=== PATIENT | female | born 1985 | race Asian ===

== ENCOUNTER 2017-06-23 12:36 | Inpatient (IN) | payer OTHER ==
[2017-06-23] MEDS ORDERED: Sodium Chloride 0.9% 10 ML Syringe FLUSH PRN (13:11)
[2017-06-23] MEDS ORDERED: MVI, Adult with Vitamin K 10 ML, Folic Acid 1 MG, Thiamine 100 MG in Lactated Ringers 1... IV ONE ×4 (13:36)
[2017-06-23] MEDS ORDERED: Potassium Chloride 20 MEQ in Premix Bag 1 BAG IV SCH (14:00)
--- NOTE | 2017-06-23 14:08 | PCM.PN ---
- General Info Date of Service: 06/23/17 Admission Dx/Problem (Free Text): 32-year-old the female with her first at 10 week gestational age was admitted by Dr. Beaver for having refractory nausea and vomiting. 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 Patient started the nausea and vomiting 3-4 weeks ago. She vomits about 10 times a day. Last vomits was 50 minutes ago. Patient denies headache, change in vision, fever, chills, fever, chills, chest pain, shortness breath, cough, abdominal pain, diarrhea, nausea discharge, vaginal bleeding, lower extremity edema, any other symptoms or concerns. She admitted that she is having movement. Patient was started on PTU for the thyrotoxicosis. Yesterday her magnesium was 1.7 and potassium 2.9. she went to the emergency room and had Unknown amount of potassium and magnesium infusion. Her labs were rechecked today at the clinic and her magnesium is 1.5 and potassium 2.7 - Patient Data Weight - Most Recent: 73.936 kg Med Orders - Current: Current Medications Multivitamins/Minerals 10 ml/Folic Acid 1 mg/ Thiamine HCl 100 mg/ Lactated Ringer's 1,011.2 mls @ 999 mls/hr IV ONETIME ONE Stop: 06/23/17 14:36 Magnesium Sulfate 2 gm/ Premix 50 mls @ 25 mls/hr IV Q2H ZHANG Stop: 06/23/17 17:59 Potassium Chloride 10 meq/ (Premix) 100 mls @ 100 mls/hr IV Q1H ZHANG Stop: 06/23/17 21:59 Ondansetron HCl (Zofran) 4 mg IVPUSH Q4H PRN PRN Reason: Nausea/Vomiting Propylthiouracil (Propylthiouracil) 100 mg PO Q8HR ZHANG Sodium Chloride (Saline Flush) 10 ml FLUSH ASDIRECTED PRN PRN Reason: Keep Vein Open Discontinued Medications Potassium Chloride 20 meq/ (Premix) 100 mls @ 100 mls/hr IV Q1H ZHANG Stop: 06/23/17 15:59 - My Orders Last 24 Hours: My Active Orders 06/23/17 13:36 MVI, Adult with Vitamin K [Infuvite Adult] 10 ml Folic Acid 1 mg Thiamine [ Vitamin B-1] 100 mg Lactated Ringers [Ringers, Lactated] 1,000 ml IV ONETIME 06/23/17 14:00 Magnesium Sulfate/Water [Magnesium Sulfate 2 GM in Water 50 ML] 2 gm Premix Bag 1 bag IV Q2H Potassium Chloride [KCl 10 MEQ in Water 100 ML] 10 meq Premix Bag 1 bag IV Q1H 06/23/17 23:00 BASIC METABOLIC PANEL,BMP [CHEM] Routine
[2017-06-23] MEDS: Potassium Chloride 10 MEQ in Premix Bag 1 BAG IV SCH ×4 (14:19→22:47)
--- NOTE | 2017-06-23 14:21 | PCM.PN ---
- General Info Date of Service: 06/23/17 Admission Dx/Problem (Free Text): Hyperkalemia, hypomagnesemia, hyperemesis gravidarum, thyrotoxicosis Subjective Update: 32-year-old the female with her first at 10 week gestational age was admitted by Dr. Beaver for having refractory nausea and vomiting. 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 Patient started the nausea and vomiting 3-4 weeks ago. She vomits about 10 times a day. Last vomits was 50 minutes ago. Patient denies headache, change in vision, fever, chills, fever, chills, chest pain, shortness breath, cough, abdominal pain, diarrhea, nausea discharge, vaginal bleeding, lower extremity edema, any other symptoms or concerns. She admitted that she is having movement. Patient was started on PTU for the thyrotoxicosis. Yesterday her magnesium was 1.7 and potassium 2.9. she went to the emergency room and had Unknown amount of potassium and magnesium infusion. Her labs were rechecked today at the clinic and her magnesium is 1.5 and potassium 2.7. AST 87. ALP 151. - Patient Data Weight - Most Recent: 73.936 kg Med Orders - Current: Current Medications Multivitamins/Minerals 10 ml/Folic Acid 1 mg/ Thiamine HCl 100 mg/ Lactated Ringer's 1,011.2 mls @ 999 mls/hr IV ONETIME ONE Stop: 06/23/17 14:36 Magnesium Sulfate 2 gm/ Premix 50 mls @ 25 mls/hr IV Q2H ZHANG Stop: 06/23/17 17:59 Potassium Chloride 10 meq/ (Premix) 100 mls @ 100 mls/hr IV Q1H ZHANG Stop: 06/23/17 21:59 Ondansetron HCl (Zofran) 4 mg IVPUSH Q4H PRN PRN Reason: Nausea/Vomiting Propylthiouracil (Propylthiouracil) 100 mg PO Q8HR [facility] Sodium Chloride (Saline Flush) 10 ml FLUSH ASDIRECTED PRN PRN Reason: Keep Vein Open Discontinued Medications Potassium Chloride 20 meq/ (Premix) 100 mls @ 100 mls/hr IV Q1H [facility] Stop: 06/23/17 15:59 - Exam General: Alert, Oriented, Cooperative, No Acute Distress. No: Mild Distress, Moderate Distress, Severe Distress, Sedated, Lethargic, Obtunded HEENT: Pupils Equal, Pupils Reactive, EOMI, Mucous Membr. Moist/[place] Neck: Supple, Trachea Midline, No JVD Lungs: Clear to Auscultation, Normal Respiratory Effort Cardiovascular: Regular Rate, Regular Rhythm, No Murmurs. No: Bradycardia, Tachycardia, Murmurs, Gallops, Rubs GI/Abdominal Exam: Normal Bowel Sounds, Soft, Non-Tender, No Organomegaly, No Distention, No Abnormal Bruit (Female) Exam: Deferred Back Exam: Normal Inspection, Full Range of Motion. No: CVA Tenderness (L), CVA Tenderness (R) Extremities: Normal Inspection, Normal Range of Motion, Non-Tender, No Pedal Edema, Normal Capillary Refill Skin: Warm, Dry, Intact Neurological: No New Focal Deficit Psy/Mental Status: Alert, Normal Affect, Normal Mood - Problem List Review Problem List Initiated/Reviewed/Updated: Yes - My Orders Last 24 Hours: My Active Orders 06/23/17 13:36 MVI, Adult with Vitamin K [Infuvite Adult] 10 ml Folic Acid 1 mg Thiamine [ Vitamin B-1] 100 mg Lactated Ringers [Ringers, Lactated] 1,000 ml IV ONETIME 06/23/17 14:00 Magnesium Sulfate/Water [Magnesium Sulfate 2 GM in Water 50 ML] 2 gm Premix Bag 1 bag IV Q2H Potassium Chloride [KCl 10 MEQ in Water 100 ML] 10 meq Premix Bag 1 bag IV Q1H 06/23/17 23:00 COMPREHENSIVE METABOLIC PN,CMP [CHEM] Routine MAGNESIUM [CHEM] Routine - Plan Plan:: Impression 32-year-old the female with her first at 10 week gestational age was admitted by Dr. Beaver for having refractory nausea and vomiting. Magnesium is 1.5. Potassium 2.7. AST 151. AST 87. TSH on 06/19/17 was less than 0.01. I was consulted by Dr. Beaver to manage her magnesium and potassium. Plan #Hypokalemia -Potassium chloride 10 mEq in 100 mL of water, trying at 1 mL per hour. We'll give 8 doses. Unfortunately our staff do not run 20 mEq of potassium chloride IV in 1 hour. Patient does not tolerating oral pills but will try 20 mEq orally after giving 1 dose of Zofran -We'll check potassium after 9 hours -EKG shows no acute findings. It is sinus rhythm with no U waves or arrhythmia. -Monitor on telemetry #Hypomagnesemia We'll give magnesium sulfate 4 g IV infusion and 4 hours #Hyperemesis gravidarum -We'll give 1 L of banana bag as a bolus -We'll run IV fluid of LR at 150 mL per hour -Rest of management is per OB team #Thyrotoxicosis without thyroid storm, -Management is per OB team #Elevated liver enzymes -Could be from dehydration -Recheck liver enzymes SCDs for DVT prophylaxis I'll sign out to Dr. Dick 7 PM
[2017-06-23] MEDS: Magnesium Sulfate/Water 2 GM in Premix Bag 1 BAG IV SCH ×2 (14:29→17:12)
[2017-06-23] MEDS ORDERED: Lactated Ringers 1,000 ML IV SCH (14:30)
[2017-06-23] MEDS ORDERED: Ondansetron 4 MG/2 ML SDV IV ONE (14:31)
[2017-06-23] MEDS: Ondansetron 4 MG/2 ML SDV IVPUSH PRN ×2 (14:41→22:13)
[2017-06-23] MEDS ORDERED: Potassium Chloride 10 MEQ Tab.ER PO ONE (14:45)
[2017-06-23 15:49] LABS: ANION GAP 14.1; CHLORIDE,CL 102 mmol/L (101-111); SODIUM,NA 133 mmol/L (135-145)
[2017-06-23] MEDS ORDERED: Acetaminophen/oxyCODONE 325-5 MG Tab PO ONE (22:28)
[2017-06-24] MEDS ORDERED: Acetaminophen 325 MG Tab PO PRN (05:12)
[2017-06-24] MEDS ORDERED: oxyCODONE 5 MG Tab PO ONE (05:13)
[2017-06-24] MEDS ORDERED: Acetaminophen/oxyCODONE 325-5 MG Tab PO ONE (05:19)
[2017-06-24 05:21] LABS: ANION GAP 10.7; CHLORIDE,CL 104 mmol/L (101-111); SODIUM,NA 134 mmol/L (135-145)
[2017-06-24] MEDS: Potassium Chloride 10 MEQ in Premix Bag 1 BAG IV SCH ×2 (05:53→05:54)
[2017-06-24] MEDS ORDERED: Prenatal Multivitamin with Calcium/Folic Acid/Iron Tab PO SCH (08:00)
[2017-06-24] MEDS ORDERED: Potassium Chloride 10 MEQ Tab.ER PO ONE (09:07)
[2017-06-24] MEDS ORDERED: Ondansetron 4 MG Tab.DIS PO ONE (09:08)
--- NOTE | 2017-06-26 09:17 | DISCH ---
DATE: 06/24/2017 LOCATION: [facility] SUBJECTIVE: The patient is a 32-year-old G1 at 10 weeks and 1 day, who was admitted last night by Dr. Anabel Beaver for hyperemesis gravidarum as well as electrolyte abnormality. The patient has been on Zofran, and Nephrology did give her 20 mEq of IV potassium and 3 mg IV magnesium. This morning, she had lost her IV, but she is tolerating p.o., she had an entire breakfast, which is very reassuring. The patient did need Percocet overnight for her headache and that has also resolved now and she had been eating. OBJECTIVE: Vital Signs: The patient is afebrile. Blood pressure 115/52, respiratory rate 20, and O2 saturation 99%. Her heart rate is 72. LAB AND DIAGNOSTIC DATA: Her potassium has now gone up from 3.1 to 3.7. Her magnesium has gone up from 1.6 to 2.0. A bedside ultrasound was performed, and it did show a single live intrauterine with good growth. ASSESSMENT AND PLAN: This is a 32-year-old 1 at 10 weeks and 1 day with hyperemesis gravidarum. The patient is doing better now on Zofran. She had already taken 1 p.o. Zofran today and was able to tolerate her p.o. potassium, and as stated before, she has passed her PO challenge; therefore, we will discharge her on the Zofran. I also gave her a prescription for K-Dur 10 mEq take them once a day for the next 10 days. I did speak with our hospitalist/wool carder, who recommended that we perform another chem-10 on Monday, to make sure her potassium and magnesium are still normal. She will follow up with Dr. Beaver in the clinic this coming Monday, but she will call us if she is unable to tolerate p.o. or if is having any problems. Again, I strongly stressed to this patient that she needs to continue her thyroid medications also since she has hyperthyroidism. [facility] /[id number] ENRRIQUE
--- NOTE | 2017-07-05 12:28 | EKG ---
06/23/2017- JJ JOSHUA - FINDINGS: EKG per my reading shows sinus tachycardia at the rate of 90. MOD /[id number]
== END 2017-06-24 11:49 | disposition home or self-care (01) | DRG 781 ==
LOC: UNDOADMIN 12:52 → DL.MS 12:52
PROVIDERS: ADMIT Family Medicine; ATTEND Family Medicine
DX: O21.0 Mild hyperemesis gravidarum (principal); O26.891 Other specified pregnancy related conditions, first trimester; Z3A.10 10 weeks gestation of pregnancy; O99.281 Endocrine, nutritional and metabolic diseases complicating pregnancy, first trimester; E87.6 Hypokalemia; E83.42 Hypomagnesemia; Z79.899 Other long term (current) drug therapy
CPT/HCPCS: 36415; 80053; 83735; 84132; A9270-GY; J2405; J3411; J3475; J3480; J3490; J7120

== ENCOUNTER 2017-12-24 06:39 | Inpatient (IN) | payer OTHER ==
[2017-12-24] MEDS: Lactated Ringers 1,000 ML IV SCH ×3 (07:30→18:20)
[2017-12-24] MEDS ORDERED: Sodium Chloride 0.9% 10 ML Syringe FLUSH PRN (08:38)
[2017-12-24] MEDS ORDERED: Lactated Ringers 500 ML IV ONE (08:38)
[2017-12-24] MEDS ORDERED: Lidocaine 1% 30 ML SDV INJECT PRN (08:38)
[2017-12-24] MEDS ORDERED: Tranexamic Acid 1,000 MG in Sodium Chloride 0.9% 100 ML IV PRN (08:38)
[2017-12-24] MEDS ORDERED: Carboprost Tromethamine 250 MCG/1 ML Amp IM PRN (08:38)
[2017-12-24] MEDS ORDERED: Acetaminophen 325 MG Tab PO PRN (08:38)
[2017-12-24] MEDS ORDERED: Ondansetron 4 MG/2 ML SDV IV PRN (08:38)
[2017-12-24] MEDS ORDERED: Misoprostol 400 MCG (4 X 100 MCG TAB) RECTAL PRN (08:38)
[2017-12-24] MEDS ORDERED: Methylergonovine 0.2 MG/1 ML Amp IM PRN (08:38)
[2017-12-24] MEDS ORDERED: Lactated Ringers 1,000 ML IV SCH (08:45)
[2017-12-24] MEDS: Oxytocin/Normal Saline 30 UNIT/500 ML BAG IV SCH (08:47)
--- NOTE | 2017-12-24 09:26 | HP ---
CHIEF COMPLAINT: Leakage of fluid. HISTORY OF PRESENT ILLNESS: A 32-year-old 1, para 0, currently at 36 and 2/7 weeks' intrauterine based on 10-week ultrasound, presents to the hospital reporting spontaneous rupture of membranes around 2:00 this morning with continued leakage of clear fluid. Also felt that the baby movement had been less since that time. She has had some contractions, but nothing that is really getting more painful or regular. Reports no symptoms of preeclampsia. No headaches, blurry vision, chest pain, shortness of breath, right upper quadrant pain, nausea or vomiting. She does have some significant edema that has been present for several weeks now. Otherwise, denies acute concerns at this time. HISTORY: She has had excellent care with some significant hyperemesis gravidarum in the first trimester, treated several times with IV fluids as an outpatient and even admitted to the hospital for potassium replacement and treatment with IV and IM medications for her nausea, and she initially experienced some weight loss, but has made up for that. Her thyroid has been hyperactive as well and she has been managed on PTU and Tapazole for that and never made it to see Endocrinology and is anticipating doing that sometime after delivery due to her history of advanced maternal age and infertility. She was given progesterone during the first trimester. MEDICATIONS: Total list of medications this , 1. Zofran. 2. Iron. 3. PTU. 4. Tapazole. 5. Reglan. 6. Phenergan. 7. Potassium chloride. 8. Magnesium. 9. Progesterone. 10.Tylenol. 11.Oxycodone. 12.TobraDex eye drops. 13.Thiamine. LABORATORY DATA: AB positive. Rubella immune. Syphilis serology nonreactive. Urine culture, no growth. Hepatitis B negative. HIV negative. Gonorrhea and Chlamydia negative. Hepatitis C, nonreactive. Wet prep was negative. Glucose tolerance test normal at 98. Last hemoglobin of 10.4 and platelets of 219. Group B Strep culture was negative. Varicella susceptible. PAST MEDICAL HISTORY: 1. Ear piercings. No transfusions, tattoos, or IV drug use. 2. History of infertility with 10 years of treatment at [place] and [facility]. 3. History of chickenpox vaccination. 4. Puberty at age 11. SURGICAL HISTORY: She had some fertility surgeries, otherwise none. FAMILY HISTORY: Mother with hypertension. Father has no known diseases. Sister has a history of stillbirth or miscarriage. Brother has no known diseases. Maternal grandmother with hypertension and stroke. Maternal grandfather had no known diseases. Paternal grandmother had liver disease. Paternal grandfather had no known diseases. The family history is negative for cystic fibrosis, seizures, bleeding problems, clotting disorders, defects and multiples in labor. SOCIAL HISTORY: The patient is , is [place]. She is a nonsmoker and had no alcohol exposure this . 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 They live in an apartment here in town and did not have any pets. They are originally from [place] and [place] [facility]. Her mother will be coming to visit to help them after the baby is born. CURRENT MEDICATIONS: 1. Iron 325 mg 2 to 3 times daily. 2. Magnesium oxide 250 mg twice daily. 3. Tapazole 10 mg twice daily. 4. Zofran 4 mg every 8 hours as needed. 5. vitamin 1 daily. ALLERGIES: No known drug allergies. REVIEW OF SYSTEMS: Pertinent positives and negatives under the history of present illness. No fever or chills. No current nausea or vomiting. No diarrhea or constipation. No dysuria. No new reported skin rashes, aches or pains. OBJECTIVE: Vital Signs: Initial blood pressure 144/88, pulse of 94, temperature is 96.9. HEENT: Grossly unremarkable. Neck: Supple without adenopathy. Thyroid is not enlarged. Heart: Regular without murmur. Lungs: Clear to auscultation bilaterally. Abdomen: Gravid, soft, nontender. Fundal height appropriate for dates and quick look bedside ultrasound confirms baby to be vertex in OP position with an anterior placenta. Extremities: 2+ pitting edema bilaterally. No erythema or tenderness. Neurological: No focal deficits. Cervix: per the nurse's exam is currently only a dimple and very high position. The patient is fairly uncomfortable with pelvic exams and makes exam difficult. monitoring strip shows baseline heart rate of 140 beats per minute with moderate [id number] variability, but overall nonreactive without significant accelerations. Contractions initially every 3 to 7 minutes and spaced out every 8 minutes when I came in to see her. ASSESSMENT: 1. A 36 and 2/7 weeks' intrauterine based on last menstrual period and 10-week ultrasound. 2. Premature rupture of membranes. 3. Anemia of . 4. Elevated blood pressures currently. 5. Varicella susceptible. 6. Hyperthyroidism. 7. Hyperemesis gravidarum. 8. Advanced maternal age. 9. History of infertility. PLAN: The patient has been admitted to the hospital. She has been started on some Pitocin for cervical ripening and hopefully induction of labor. Hopefully will be able to get her into labor and anticipating vaginal delivery. However, given the overall clinical picture, I would not be surprised if we needed to proceed with primary section. Preeclampsia labs have been ordered including a catheterized urine sample. [facility] /[id number] MTDIrene
[2017-12-24] MEDS ORDERED: hydrOXYzine HCl 25 MG Tab PO ONE (10:07)
[2017-12-24] MEDS ORDERED: fentaNYL 100 MCG/2 ML SDV IVPUSH PRN (16:44)
[2017-12-24] MEDS ORDERED: Nalbuphine 10 MG/1 ML Vial IM PRN (16:44)
--- NOTE | 2017-12-24 17:13 | PN ---
DATE: 12/24/2017 SUBJECTIVE: A 32-year-old patient admitted for induction of labor for premature rupture of membranes. She has been on Pitocin going up by 1 unit as able, which has been fairly infrequent as there are periods of some minimal reactivity, but mostly just a nonreactive tracing without significant accelerations. Contraction patterns have been irregular. They can be as frequent as every 2 to 3 minutes, but then space out to 7 to 8 minutes. Sometimes the contraction lasts 2 minutes and then there will be nothing for a period of time. Reporting pain mostly is in the back, but now she is starting to feel some contractions up through the abdominal area. Breathing through her contractions and crying with some now. Not reporting anything like pelvic pressure. Leakage of fluid continues to be clear. Disappointed that she is not progressing more rapidly. OBJECTIVE: Vital Signs: Some blood pressures in the 130s over 80s, currently sitting at 147/66; with a pulse of 81. This was just shortly after a cervical exam and discussion about potential transition to section. Pelvic: Cervix remains at a dimple, but is at mid position, softer than previous. Discussed with the nurse that she had told the patient she was 1 cm, but in reality, remained a dimple and although the cervix is ripening, it has not really changed. heart tones are currently at 140 beats per minute with moderate [id number]-jd-[id number] variability. No accelerations on this particular portion on looking at, but was just reactive a moment ago. Contraction pattern is as described above. ASSESSMENT: 1. 36 and 2/7 weeks' intrauterine in a 1, para 0 patient. 2. Premature , going on to prolonged rupture of membranes. 3. Anemia of . 4. Varicella susceptible. 5. Hyperthyroidism. 6. Hyperemesis gravidarum. 7. History of infertility. PLAN: At this time, we will continue to ripen the cervix and increase the Pitocin as able. Hopefully, we have more reactive tracing if we can actually start going up by 2s and unfortunately baby will either develop some distress and hard to proceed to or will be able to get her into a good labor pattern, which will actually progress and we are hoping for vaginal delivery, especially with a infant, delivery should be a little bit easy on her with her short stature. I did discuss with the patient and her potential for section and its risks including, but not limited to, risk of infection, plan for preoperative antibiotics, risk of blood transfusion, risk of injury to any internal organs and adjacent structures including, but not limited to, large blood vessels, nerves, veins, fallopian tubes, ovaries, uterus, bladder, intestines, any other adjacent structures and that also be repaired as discovered, and remote risk of complications for mother and/or baby that would require transfer to a larger level of care and their questions were answered for now. When she is doing well, should be able to get up to the tub and hopefully relax more while we await for further cervical change. [facility] /[id number]
[2017-12-25] MEDS ORDERED: Nalbuphine 10 MG/1 ML Vial IM PRN (00:50)
[2017-12-25] MEDS: Lactated Ringers 1,000 ML IV SCH (06:18)
[2017-12-25] MEDS ORDERED: Citric Acid/Sodium Citrate Solution 30 ML Cup PO ONE (06:53)
[2017-12-25] MEDS ORDERED: ceFAZolin 2 GM in Premix Bag 1 BAG IV ONE (06:53)
[2017-12-25] MEDS ORDERED: Tranexamic Acid 1,000 MG in Sodium Chloride 0.9% 100 ML IV PRN (06:53)
[2017-12-25] MEDS ORDERED: Lactated Ringers 1,000 ML IV SCH ×2 (07:00→07:15)
[2017-12-25] MEDS ORDERED: Naloxone 2 MG/2 ML Syringe IVPUSH PRN (07:05)
[2017-12-25] MEDS ORDERED: diphenhydrAMINE 50 MG/ML SDV IVPUSH PRN (07:05)
[2017-12-25] MEDS ORDERED: ePHEDrine 50 MG/ML SDV IVPUSH PRN (07:05)
[2017-12-25] MEDS ORDERED: Acetaminophen/oxyCODONE 325-5 MG Tab PO PRN (07:05)
[2017-12-25] MEDS: Simethicone 80 MG Tab.Chew PO SCH ×4 (09:15→20:44)
[2017-12-25] MEDS: Ferrous Sulfate 325 MG Tab PO SCH (09:15)
[2017-12-25] MEDS: Oxytocin/Normal Saline 30 UNIT/500 ML BAG IV SCH (09:24)
--- NOTE | 2017-12-25 09:48 | PN ---
DATE: 12/25/2017 SUBJECTIVE: The patient has been ruptured for almost 29 hours now and is reporting that the painful contractions are occurring more so in her back than in the upper or anterior abdomen, and she feels that she is delivering the baby through her back. It has been in a regular pattern throughout the night. She has become more mentally exhausted and is having more difficulties tolerating the discomfort with the contractions, and her only hopes at this time are for a healthy baby regardless of route of delivery. OBJECTIVE: Vital Signs: Blood pressures continued to be in the high 130s and 140s and 80s and 90s, last was 154/81; pulse of 82; and temperature is 98.5. Abdomen: heart tone tracing at 135 beats per minute at baseline with moderate pyht-lh-wpep variability, 10 x 10 with only occasional 15 x 15 accelerations are noted. There are no decelerations or periods of minimal variability at this time. Contractions are every 3 to 6 minutes with the Pitocin. We are even only able to get them to every 4 with Pitocin. She was up to 24 milliunits last night, so we turned it off for 1 hour, turned it back on at 6, and she is currently back up at 18 with minimal results. Pelvic: Cervix examined by the nurse and myself, and there has been no significant changes, 1 cm dilated, 95% effaced, and -2 station. ASSESSMENT: 1. A 36-3/7 weeks' intrauterine in a 1, para 0 patient with advanced maternal age. 2. Prolonged premature rupture of membranes. 3. Anemia of . 4. Varicella susceptible. 5. Hyperthyroidism. 6. Hyperemesis gravidarum. 7. History of infertility. 8. Blood type AB positive, rubella immune, and group B Streptococcus negative. 9. Mild preeclampsia. 10.Failed induction. PLAN: At this time, I have discussed with the patient and her indications, risks, benefits, and alternatives of primary low transverse section. I will outline those details in the operative report. Also, I had them consent for blood transfusion, and their questions were answered. Surgical team has been notified as has Dr. Cline, who will be acting as my assist and also had the opportunity to review the case. We will be proceeding to the OR as soon as they are available. [facility] /[id number]
[2017-12-25] MEDS ORDERED: Lactated Ringers 1,000 ML IV ONE (11:35)
[2017-12-25] MEDS ORDERED: Ondansetron 4 MG/2 ML SDV IV ONE (11:35)
[2017-12-25] MEDS ORDERED: Ketorolac 30 MG/ML SDV IVPUSH ONE (11:35)
[2017-12-25] MEDS ORDERED: Bupivacaine 0.75%/D5W 2 ML Amp INJECT ONE (11:35)
[2017-12-25] MEDS ORDERED: Dexamethasone 4 MG/ML SDV IV ONE (11:35)
[2017-12-25] MEDS ORDERED: Morphine PF 1 MG/ML Amp ONE (11:35)
[2017-12-25] MEDS: Ketorolac 30 MG/ML SDV IVPUSH SCH ×2 (14:59→20:43)
[2017-12-25] MEDS ORDERED: Furosemide 20 MG Tab PO ONE (16:36)
[2017-12-25] MEDS ORDERED: Ondansetron 4 MG/2 ML SDV IVPUSH ONE (19:58)
[2017-12-25] MEDS: Docusate Sodium 100 MG Cap PO PRN (20:44)
[2017-12-26] MEDS: Ketorolac 30 MG/ML SDV IVPUSH SCH (02:30)
--- NOTE | 2017-12-26 08:56 | OR ---
DATE: 12/25/2017 PREOPERATIVE DIAGNOSES: 1. 36 and 3/7 weeks' intrauterine by last menstrual period and 10- week ultrasound. 2. 1, para 0. 3. Mild preeclampsia. 4. Premature prolonged rupture of membranes. 5. Anemia of . 6. Varicella susceptible. 7. Hyperthyroidism. 8. Hyperemesis gravidarum. 9. Advanced maternal age. 10.History of infertility. 11.Failed induction. POSTPROCEDURE DIAGNOSES: 1. 36 and 3/7 weeks' intrauterine by last menstrual period and 10- week ultrasound. 2. 1, para 0. 3. Mild preeclampsia. 4. Premature prolonged rupture of membranes. 5. Anemia of . 6. Varicella susceptible. 7. Hyperthyroidism. 8. Hyperemesis gravidarum. 9. Advanced maternal age. 10.History of infertility. 11.Failed induction. 12.Post- section with delivery of viable female . BRIEF HISTORY: A 32-year-old female, admitted to the hospital after at least 5 hours of spontaneous rupture of membranes at home without resulting contractions. She was quickly started on Pitocin, and at approximately 29 hours into the process, she still was not making adequate cervical change, heart tracings, although were not nonreassuring, were also nonreactive with only 10 x 10 accelerations, occasional periods of minimal variability and we were unsuccessful getting her into a sufficient labor pattern despite starting and stopping of the Pitocin. Discussion was had with the patient and her regarding the indications, risks, benefits, and alternatives to primary section and they agreed to proceed. Please see history and physical and progress notes in the chart. CONSENT: Discussed with her patient and the potential for infection and plan for preoperative antibiotics; potential for bleeding, requiring blood transfusion, as well as its inherent risks; potential for unanticipated surgical complications including, but not limited to, injury to internal organs and adjacent structures including, but not limited to, bowel, bladder, fallopian tubes, ovaries, intestines, large blood vessels, nerves, veins, or other unintended structures and that these would be repaired as they were found, and risk of complications that would require transfer to a higher level of care. Their questions were answered. Appropriate consent forms were signed and can be found in the chart. SKIDWAY WORKER: Liam Cline MD PROCEDURE PERFORMED: Primary low transverse section without complications, double-layer closure. The patient is a candidate. DESCRIPTION OF PROCEDURE: The patient was brought to the operating room and spinal anesthesia obtained. She was laid in the dorsal supine position with leftward tilt and spinal anesthesia obtained. Banda indwelling catheter was placed, and her abdomen was prepped in the usual fashion and sterile drapes applied. The skin incision made in Pfannenstiel location at 8:20 a.m. and carried down to the underlying fascia using finger dissection and cautery. Fascia was incised in the midline and extended bilaterally with cautery and finger dissection. The superior fascial edge was grasped, tented up, and rectus muscles dissected off bluntly. The inferior fascial edge grasped, tented up, and rectus muscles dissected off with cautery and bluntly. Peritoneal cavity entered with blunt finger dissection and Jin retractor was placed and the appropriate uterine incision location identified and bladder flap created. Then, uterine incision was made with a scalpel keeping the bag of water intact. Hysterotomy site extended with the Villanueva method and then bag of water ruptured spontaneously. Infant's head was brought up through the hysterotomy site, and with a concomitant uterine pressure, the baby was delivered at 8:25 a.m. Baby's mouth and nose were suctioned and stimulated with vigorous cry. Three-vessel umbilical cord was doubly clamped, and baby was taken to the warmer for further evaluation. Cord blood sample was obtained. Placenta delivered by gentle cord traction and concomitant uterine massage and intact. Uterine cavity cleared of any clots and debris with dry lap sponge. Hysterotomy site closed with 1-0 Vicryl in the running locked fashion, followed by a second imbricating layer. Hemostasis was excellent. Jin retractor removed. Paracolic gutters were cleared of all clots and debris. Hysterotomy site re-inspected and remained hemostatic. Rectus muscles brought together in the midline at the base with a simple loose [id number] suture. The subcutaneous tissue and fascial layer then irrigated and cleared of any clots and debris and the fascia closed with a running stitch of 0 looped PDS in the usual fashion. Subcutaneous bleeders controlled with cautery and skin closed with 3-0 Monocryl subcuticular suture, which was then reinforced with Mastisol and Steri-Strips. The patient tolerated the procedure well, and the procedure ended at 8:55 a.m. DISPOSITION: Baby to go to the nursery. Mother to go to the PACU for further recovery. COMPLICATIONS: None. ESTIMATED BLOOD LOSS: 400 mL. FLUIDS: 1 L of LR and 200 mL with Pitocin. URINE OUTPUT: 50 mL of yellow, erica color. [facility] /[id number]
[2017-12-26] MEDS ORDERED: Furosemide 20 MG Tab PO ONE (09:00)
[2017-12-26] MEDS: Ferrous Sulfate 325 MG Tab PO SCH (09:33)
[2017-12-26] MEDS: Simethicone 80 MG Tab.Chew PO SCH ×4 (09:33→21:26)
[2017-12-26] MEDS: Docusate Sodium 100 MG Cap PO PRN ×2 (09:34→21:28)
--- NOTE | 2017-12-26 09:50 | PN ---
DATE: 12/26/2017 SUBJECTIVE: Postoperative day #1, generally doing well. She has been up to ambulate a couple of times, passing some flatus, not yet had a bowel movement. Banda catheter remains in place. No chest pain or shortness of breath. Mild vaginal bleeding. seems to be going fairly well. No other problems or acute concerns at this time. She has had no symptoms of preeclampsia. OBJECTIVE: Vital Signs: Reviewed. Blood pressures have been much improved. Respiratory rate of 16, O2 saturations 98% on room air. Heart: Regular without obvious murmur. Lungs: Clear to auscultation bilaterally. Abdomen: Soft and nontender. Fundus is firm and below the umbilicus. Dressing is clean, dry, and intact. Extremities: 3+ pitting edema bilaterally. SCDs are on. No warmth to touch through the JASON hose. LABORATORY DATA: ASSESSMENT: 1. Postoperative day #1, status post primary low transverse section. 2. Mild preeclampsia. 3. Prolonged premature rupture of membranes. 4. Anemia of and acute blood loss. 5. Varicella susceptible. 6. Hyperthyroidism. 7. Hyperemesis gravidarum. 8. History of infertility. PLAN: Continue routine postoperative care, as well ensure that she is on her home medications with the Tapazole and keep close track of things in that regard and with her other medication. Anticipate discharge home on postoperative day #3 as long as all continues to do well. Her and her 's questions have been answered. [facility] /[id number]
[2017-12-26] MEDS: Acetaminophen/oxyCODONE 325-5 MG Tab PO PRN ×3 (10:31→21:28)
[2017-12-26] MEDS: Ibuprofen 800 MG Tab PO PRN ×2 (13:45→21:28)
[2017-12-26] MEDS ORDERED: Bisacodyl 10 MG Supp RECTAL ONE (21:36)
[2017-12-27] MEDS: Acetaminophen/oxyCODONE 325-5 MG Tab PO PRN ×5 (01:33→20:24)
[2017-12-27] MEDS: Ibuprofen 800 MG Tab PO PRN ×2 (05:39→16:04)
[2017-12-27] MEDS: Simethicone 80 MG Tab.Chew PO SCH ×5 (09:34→20:25)
[2017-12-27] MEDS: Ferrous Sulfate 325 MG Tab PO SCH (09:34)
--- NOTE | 2017-12-27 16:25 | PN ---
DATE: 12/27/2017 SUBJECTIVE: A 32-year-old 1, now para 1, status post primary low transverse section, postoperative day #2. Reports that she has been doing well, ambulating and tolerating regular diet. She has had a bowel movement yesterday after use of suppository. Has been voiding without difficulty. She has had no fever or chills. No chest pain or shortness of breath. No symptoms of preeclampsia. Bleeding has been minimal. Wound has been doing well. She is with assistance and denies any other concerns. OBJECTIVE: Vital Signs: Stable. Blood pressures have been controlled. Heart: Regular without murmur. Lungs: Clear to auscultation bilaterally. Abdomen: Soft, mildly distended. Positive hypoactive bowel sounds in all 4 quadrants. Incision site is clean, dry, and intact. Extremities 2+ pitting edema. No erythema or tenderness noted. LABORATORY DATA: ASSESSMENT: 1. Postoperative day #2, status post primary section, doing well. 2. 1, now para 1. 3. Mild preeclampsia. 4. Hyperthyroidism. 5. Anemia of and acute blood loss. 6. Other diagnoses as per her admission history and physical. PLAN: Continue routine post surgical care and anticipate discharge home tomorrow as long as all continues to go well. Her and her 's questions have been answered. [facility] /[id number]
[2017-12-28] MEDS: Acetaminophen/oxyCODONE 325-5 MG Tab PO PRN ×3 (00:14→08:46)
[2017-12-28] MEDS: Ibuprofen 800 MG Tab PO PRN ×2 (00:14→08:44)
[2017-12-28] MEDS: Ferrous Sulfate 325 MG Tab PO SCH (08:44)
[2017-12-28] MEDS: Simethicone 80 MG Tab.Chew PO SCH (08:44)
== END 2017-12-28 12:30 | disposition home or self-care (01) | DRG 765 ==
LOC: DL.OBCHECK 06:39 → DL.OB 07:17 → OBSVTOIN 12-25 08:25
PROVIDERS: ADMIT Family Medicine; ATTEND Family Medicine
PROC: 10D00Z1 Extraction of Products of Conception, Low, Open Approach (ICD-10-PCS; principal; 2017-12-25)
PROC: 3E033VJ Introduction of Other Hormone into Peripheral Vein, Percutaneous Approach (ICD-10-PCS; 2017-12-25)
DX: O42.913 Preterm premature rupture of membranes, unspecified as to length of time between rupture and onset of labor, third trimester (principal); D62 Acute posthemorrhagic anemia; Z37.0 Single live birth; Z3A.36 36 weeks gestation of pregnancy; O14.04 Mild to moderate pre-eclampsia, complicating childbirth; O99.02 Anemia complicating childbirth; O21.0 Mild hyperemesis gravidarum; O99.284 Endocrine, nutritional and metabolic diseases complicating childbirth; E05.90 Thyrotoxicosis, unspecified without thyrotoxic crisis or storm; Z67.30 Type AB blood, Rh positive; O61.0 Failed medical induction of labor; Z79.899 Other long term (current) drug therapy
CPT/HCPCS: 36415; 59025; 82570; 83615; 84156; 84450; 84460; 84520; 84550; 85025; 85027; 86850; 86900; 86901; 94010; A9270-GY; J0690; J1100; J1885; J2274; J2300; J2405; J2590; J3010; J7120

== ENCOUNTER 2021-08-24 09:52 | Inpatient (IN) | payer OTHER ==
[2021-08-24] MEDS ORDERED: Carboprost Tromethamine 250 MCG/1 ML Amp IM PRN ×2 (10:00→11:49)
[2021-08-24] MEDS ORDERED: Citric Acid/Sodium Citrate Solution 30 ML Cup PO ONE (10:00)
[2021-08-24] MEDS ORDERED: Oxytocin/Normal Saline 30 UNIT/500 ML BAG IV SCH ×2 (10:00→12:00)
[2021-08-24] MEDS ORDERED: Sodium Chloride 0.9% 10 ML Syringe FLUSH SCH ×2 (10:00→21:00)
[2021-08-24] MEDS ORDERED: Oxytocin 10 Units/1 ML SDV IM PRN ×2 (10:00→11:49)
[2021-08-24] MEDS ORDERED: Methylergonovine 0.2 MG Tab PO PRN ×2 (10:00→11:49)
[2021-08-24] MEDS ORDERED: Tranexamic Acid 1,000 MG in Sodium Chloride 0.9% 100 ML IV PRN ×2 (10:00→11:50)
[2021-08-24] MEDS ORDERED: Lactated Ringers 1,000 ML IV SCH ×5 (10:00→13:45)
[2021-08-24] MEDS ORDERED: ceFAZolin 2 GM in Premix Bag 1 BAG IV ONE (10:00)
[2021-08-24] MEDS ORDERED: Sodium Chloride 0.9% 10 ML Syringe FLUSH PRN ×2 (10:00→11:50)
[2021-08-24] MEDS ORDERED: Oxytocin/Normal Saline 60 UNIT/1,000 ML BAG ONE (10:31)
[2021-08-24] MEDS ORDERED: Citric Acid/Sodium Citrate Solution 30 ML Cup ONE (10:43)
[2021-08-24] MEDS: Citric Acid/Sodium Citrate Solution 30 ML Cup PO ONE ×2 (10:47→11:32)
[2021-08-24] MEDS ORDERED: Morphine PF 10 MG/10 ML SDV ONE (12:00)
[2021-08-24] MEDS ORDERED: Lactated Ringers 1,000 ML IV ONE (12:00)
[2021-08-24] MEDS ORDERED: Labetalol 20 MG/4 ML Syringe IV ONE (12:00)
[2021-08-24] MEDS ORDERED: Oxytocin/Normal Saline 30 UNIT/500 ML BAG IV ONE (12:00)
[2021-08-24] MEDS ORDERED: Ondansetron 4 MG/2 ML SDV IV ONE (12:00)
[2021-08-24] MEDS ORDERED: Sodium Bicarbonate 4.2% 2.5 MEQ/5 ML SDV ONE (12:00)
[2021-08-24] MEDS ORDERED: Dexamethasone 4 MG/ML SDV IV ONE (12:00)
[2021-08-24] MEDS ORDERED: Labetalol 20 MG/4 ML Syringe ONE (12:19)
[2021-08-24] MEDS ORDERED: Oxytocin/Normal Saline 30 UNIT/500 ML BAG ONE ×2 (12:33→13:14)
[2021-08-24] MEDS ORDERED: Ibuprofen 800 MG Tab PO PRN (13:35)
[2021-08-24] MEDS ORDERED: Acetaminophen/oxyCODONE 325-5 MG Tab PO PRN (13:35)
[2021-08-24] MEDS ORDERED: Misoprostol 400 MCG (4 X 100 MCG TAB) RECTAL PRN (13:35)
[2021-08-24] MEDS ORDERED: Ondansetron 4 MG/2 ML SDV IVPUSH PRN (13:35)
[2021-08-24] MEDS ORDERED: diphenhydrAMINE 50 MG/ML SDV IVPUSH PRN (13:35)
[2021-08-24] MEDS ORDERED: Naloxone 2 MG/2 ML Syringe IVPUSH PRN (13:35)
[2021-08-24] MEDS ORDERED: ePHEDrine 50 MG/ML SDV IVPUSH PRN (13:35)
[2021-08-24] MEDS ORDERED: hydrALAZINE 20 MG/ML SDV IVPUSH PRN (15:01)
[2021-08-24] MEDS ORDERED: Magnesium Sulfate/Water 4 GM in Premix Bag 1 BAG IV ONE (18:06)
[2021-08-24] MEDS ORDERED: Magnesium Sulfate/Water 2 GM in Premix Bag 1 BAG IV ONE ×2 (18:06→18:35)
[2021-08-24] MEDS ORDERED: Calcium Gluconate 10% 1 GM/10 ML SDV IV PRN (18:11)
[2021-08-24] MEDS ORDERED: Magnesium Sulfate/Water 2 GM in Premix Bag 1 BAG IV SCH (18:15)
[2021-08-24] MEDS: Simethicone 80 MG Tab.Chew PO SCH (18:26)
[2021-08-24] MEDS: Magnesium Sulfate/Water 20 GM/500 ML BAG IV SCH (19:20)
[2021-08-25] MEDS: Simethicone 80 MG Tab.Chew PO SCH ×6 (01:03→22:14)
[2021-08-25] MEDS: Magnesium Sulfate/Water 20 GM/500 ML BAG IV SCH (05:59)
[2021-08-25] MEDS: Acetaminophen/oxyCODONE 325-5 MG Tab PO PRN ×4 (06:27→22:15)
[2021-08-25 08:13] LABS: ANION GAP 16.3 mEq/L (7-13); CHLORIDE,CL 100 mmol/L (98-107); SODIUM,NA 134 mmol/L (136-145)
[2021-08-25] MEDS: Docusate Sodium 100 MG Cap PO PRN ×2 (08:21→22:14)
[2021-08-25] MEDS: Prenatal Multivitamin with Calcium/Folic Acid/Iron Tab PO SCH (08:21)
[2021-08-25] MEDS: Ferrous Sulfate 325 MG Tab PO SCH (08:21)
[2021-08-26] MEDS: Acetaminophen 325 MG Tab PO PRN ×2 (02:42→13:28)
[2021-08-26 07:28] LABS: ANION GAP 15.6 mEq/L (7-13); CHLORIDE,CL 105 mmol/L (98-107); SODIUM,NA 141 mmol/L (136-145)
[2021-08-26] MEDS ORDERED: Ibuprofen 800 MG Tab PO PRN (08:16)
[2021-08-26] MEDS: Prenatal Multivitamin with Calcium/Folic Acid/Iron Tab PO SCH (08:34)
[2021-08-26] MEDS: Ferrous Sulfate 325 MG Tab PO SCH (08:34)
[2021-08-26] MEDS: Simethicone 80 MG Tab.Chew PO SCH ×2 (08:34→13:28)
[2021-08-26] MEDS: Docusate Sodium 100 MG Cap PO PRN (08:34)
[2021-08-26] MEDS ORDERED: Acetaminophen/HYDROcodone 325-5 MG Tab PO PRN (15:20)
[2021-08-26] MEDS ORDERED: Acetaminophen/HYDROcodone 325-10 MG Tab PO PRN (15:32)
== END 2021-08-26 16:40 | disposition home or self-care (01) | DRG 788 ==
LOC: DL.OB 09:52
PROVIDERS: ADMIT Family Medicine; ATTEND Family Medicine
PROC: 4A1HXCZ Monitoring of Products of Conception, Cardiac Rate, External Approach (ICD-10-PCS; principal; 2021-08-24)
PROC: 10D00Z1 Extraction of Products of Conception, Low, Open Approach (ICD-10-PCS; 2021-08-24)
DX: O36.5930 Maternal care for other known or suspected poor fetal growth, third trimester, not applicable or unspecified (principal); Z3A.36 36 weeks gestation of pregnancy; Z37.0 Single live birth; Z86.16 Personal history of COVID-19; O24.420 Gestational diabetes mellitus in childbirth, diet controlled; O99.02 Anemia complicating childbirth; D64.9 Anemia, unspecified; O34.211 Maternal care for low transverse scar from previous cesarean delivery; O14.14 Severe pre-eclampsia complicating childbirth
CPT/HCPCS: 01961; 36415; 59025; 71045; 80048; 80053; 82947; 83735; 84450; 84460; 84484; 85027; 85049; 86850; 86900; 86901; 93005; A9270-GY; J0360; J0690; J1100; J1200; J2270; J2405; J2590; J3475; J3490; J7120

== ENCOUNTER 2023-01-06 16:52 | Emergency (ER) | payer OTHER ==
[2023-01-06] MEDS ORDERED: Acetaminophen 500 MG Tab PO ONE (17:08)
[2023-01-06] MEDS ORDERED: Ketorolac 30 MG/ML SDV IM ONE (17:09)
== END 2023-01-06 17:46 | disposition home or self-care (01) ==
LOC: DL.ED 16:52
DX: S99.921A Unspecified injury of right foot, initial encounter (principal); E66.9 Obesity, unspecified; Z68.38 Body mass index [BMI] 38.0-38.9, adult; Z86.16 Personal history of COVID-19; W10.8XXA Fall (on) (from) other stairs and steps, initial encounter
CPT/HCPCS: 73630; 96372; 99283; A9270; J1885; 99282